=== PATIENT | male | born 1985 | race African-American/Black ===

== ENCOUNTER 2021-06-12 20:09 | Emergency (ER) | payer SELFPAY ==
[~2021-06-12] VITALS: Ht 188 cm; Wt 144.0 kg
[2021-06-12] MEDS ORDERED: HYDROCODONE/ACETAMINOPHEN 5/325MG TABLET PO ONE (22:45)
[2021-06-13 01:09] VITALS: BP 144/93
== END 2021-06-13 01:09 | disposition home or self-care (01) ==
LOC: ER 20:09
DX: S89.92XA Unspecified injury of left lower leg, initial encounter (principal); E11.9 Type 2 diabetes mellitus without complications; V43.62XA Car passenger injured in collision with other type car in traffic accident, initial encounter; Y93.89 Activity, other specified; Y92.488 Other paved roadways as the place of occurrence of the external cause
CPT/HCPCS: 29515; 73590; 99283